=== PATIENT | female | born 1950 | race Caucasian/White ===

== ENCOUNTER → 2024-06-13 | Outpatient (REF) | payer MEDICARE ==
[~2024-06-13] MED LIST: ALEN70TA82; AMLO1TAB24 PO; ATOR40TA75 PO; CEFD300CAP PO; ELIQ5TAB PO; LABE20TAB PO; LEVO50TA5 PO; LEVO75TA4 PO; LISI5TAB11; LISI5TAB11 PO; METR-265 PO; PROB250C PO; TRAZ-252 PO
[2024-06-13 15:11] LABS: THYROID STIMULATING HORMONE 16.856 uIU/ML (0.55-4.78)
[2024-06-13 15:12] LABS: FREE T4 1.01 NG/DL (0.89-1.76)
== END ==
LOC: M SHH 12:44
PROVIDERS: ATTEND Nurse Practitioner Family
DX: E03.9 Hypothyroidism, unspecified (principal)

== ENCOUNTER → 2024-08-03 | Outpatient (CLI) | payer MEDICARE | LOC: MERGE 08-02 10:00 → M RAD 09:30 | PROVIDERS: ATTEND Surgery | DX: K81.1 Chronic cholecystitis (principal) ==

== ENCOUNTER → 2024-08-30 | Outpatient (CLI) | payer MEDICARE | LOC: M RAD 09:25 | PROVIDERS: ATTEND Nurse Practitioner Family | DX: I70.292 Other atherosclerosis of native arteries of extremities, left leg (principal); R09.89 Other specified symptoms and signs involving the circulatory and respiratory systems ==

== ENCOUNTER → 2025-03-01 | Outpatient (CLI) | payer MEDICARE ==
[~2025-03-01] MED LIST changes: +LEVO125T4; +LISI10TA22; +PRED20TA PO
== END ==
LOC: M WHC 11:43
PROVIDERS: ATTEND Nurse Practitioner Family
DX: E04.1 Nontoxic single thyroid nodule (principal)